=== PATIENT | female | born 1995 | race African-American/Black ===

== ENCOUNTER 2018-03-13 17:22 | Emergency (ER) | payer MEDICAID ==
[~2018-03-13] VITALS: Ht 154.9 cm; Wt 46.4 kg
[2018-03-13 17:26] VITALS: BP 114/79; Ht 154.9 cm; Wt 46.4 kg
[2018-03-13] MEDS ORDERED: VOLTAREN75 MG PO (19:45)
[2018-03-13] MEDS ORDERED: BACLOFEN20 M1 PO (19:46)
== END 2018-03-13 20:12 | disposition home or self-care (01) ==
LOC: D.ER 17:22
DX: S49.82XA Other specified injuries of left shoulder and upper arm, initial encounter (principal); Y93.83 Activity, rough housing and horseplay; Y92.019 Unspecified place in single-family (private) house as the place of occurrence of the external cause

== ENCOUNTER 2018-06-16 09:19 | Emergency (ER) | payer MEDICAID ==
[~2018-06-16 09:19] MED LIST: BACLOFEN20 M1 PO; VOLTAREN75 MG PO
[2018-06-16 09:24] VITALS: BMI 19.1
[2018-06-16 09:54] LABS: BASOPHILS 0.7 % (0-2); HEMATOCRIT 34.2 % (36.0-48.0); IMMATURE GRANULOCYTES 0.2 % (0-5); LYMPHOCYTES 30.5 % (15-50); MCH 26.7 pg (26.0-34.0); MCHC 32.2 g/dL (31.0-37.0); MEAN PLATELET VOLUME 9.4 fL (7.4-10.4); MONOCYTES 10.7 % (2-11); NEUTROPHILS 56.9 % (40-80); PLATELET COUNT 362 10x3/uL (130-400); RBC 4.12 10x6/uL (4.00-5.40); WBC 6.1 10x3/uL (4.8-10.8)
[2018-06-16 10:00] LABS: APPEARANCE HAZY (CLEAR); BACTERIA FEW /hpf (NONE SEEN); BILIRUBIN NEGATIVE (NEGATIVE); COLOR YELLOW (YELLOW); EPITHELIAL CELLS 0-5 /hpf (0-5); GLUCOSE NEGATIVE (NEGATIVE); KETONE NEGATIVE (NEGATIVE); NITRITE NEGATIVE (NEGATIVE); PROTEIN NEGATIVE (NEGATIVE); SPECIFIC GRAVITY 1.015 (1.005-1.020); WHITE CELLS - URINE RARE /hpf (0-5)
[2018-06-16 10:01] LABS: MUCUS >1+ /lpf (NONE SEEN)
[2018-06-16 10:15] VITALS: BP 120/75
[2018-06-16] MEDS ORDERED: DOXYCYCLINE HY100 M2 PO (10:20)
[2018-06-16] MEDS ORDERED: FLAGYL500 MG PO (10:20)
[2018-06-16] MEDS ORDERED: VOLTAREN75 MG PO (10:20)
== END 2018-06-16 10:42 | disposition home or self-care (01) ==
LOC: D.ER 09:19
PROVIDERS: Emergency Medicine
DX: R10.2 Pelvic and perineal pain (principal)